=== PATIENT | female | born 1975 | race Caucasian/White ===

== ENCOUNTER → 2023-12-12 06:20 | Day surgery (SDC) | payer OTHER, SELFPAY | LOC: GI 06:20 | PROVIDERS: ATTENDING PHYSICIAN Internal Medicine Gastroenterology; FAMILY PHYSICIAN Family Medicine | DX: Z12.11 Encounter for screening for malignant neoplasm of colon (principal); D12.4 Benign neoplasm of descending colon; K64.4 Residual hemorrhoidal skin tags; Z83.719 Family history of colon polyps, unspecified | CPT/HCPCS: 45380; 88305 ==